=== PATIENT | female | born 2000 | race Asian ===

== ENCOUNTER → 2024-03-25 11:44 | Outpatient (CLI) | payer OTHER, SELFPAY ==
[2024-03-25 13:31] LABS: HCG Quantitative /Beta subunit < 2.39 mIU/mL; Prolactin 9.5 ng/mL (3.0-18.6)
[2024-03-25 13:47] LABS: TSH w/ Reflex to FT4 1.35 uIU/mL (0.47-4.68)
[2024-03-25 15:21] LABS: Follicle Stimulating Hormone 4.41 mIU/mL
[2024-03-31 21:37] LABS: Percent Free Testosterone 2.88 % (0.50-2.80); Testosterone Free 1.25 ng/dL (0.10-0.85); Testosterone Total 43.3 ng/dL (10.0-55.0)
== END ==
PROVIDERS: Referring Provider Obstetrics & Gynecology; Visit Provider Obstetrics & Gynecology
DX: E28.2 Polycystic ovarian syndrome (principal); N91.5 Oligomenorrhea, unspecified
CPT/HCPCS: 36415; 82627; 83001; 83002; 84146; 84402; 84403; 84443; 84702

== ENCOUNTER → 2024-04-29 07:53 | Outpatient (CLI) | payer OTHER, SELFPAY ==
--- NOTE | 2024-04-29 07:54 | DI.US.S_ITS ---
PROCEDURE: US PELVIC COMPLETE INDICATIONS: History of PCOS, oligomenorrhea TECHNIQUE: Real-time scanning was performed of the pelvic organs, with image documentation. Additional endovaginal scanning was necessary due to incomplete visualization of the adnexal and endometrial structures by transabdominal scanning. COMPARISON: None. FINDINGS: Uterus: 8 x 3.5 x 4.7 cm. Retroverted positioning. Endometrium measures 11 mm. Homogeneous echotexture. There are numerous nabothian cysts. Ovaries: Moderately enlarged right ovary measuring 28 cc, with numerous follicles numbering greater than 12. Dominant follicle measuring 2 x 1.8 cm with debris, likely hemorrhagic cyst. Mildly enlarged left ovary measures 14 cc with many follicles number greater than 12. Other: No pathologic free fluid. IMPRESSION: Bilateral enlarged ovaries with numerous follicles, nonspecific findings that can be seen with polycystic ovarian syndrome correlating with laboratory and clinical context. Numerous nabothian cysts. No significant uterine abnormality. . Dictated by: Masoud Adkins M.D. on 04/29/2024 at 14:35 Approved by: Masoud Adkins M.D. on 04/29/2024 at 14:37
== END ==
LOC: US 07:53
PROVIDERS: Referring Provider Obstetrics & Gynecology; Visit Provider Obstetrics & Gynecology
DX: E28.2 Polycystic ovarian syndrome (principal); N88.8 Other specified noninflammatory disorders of cervix uteri
CPT/HCPCS: 76830; 76856

== ENCOUNTER → 2024-07-12 16:03 | Outpatient (CLI) | payer OTHER, SELFPAY | PROVIDERS: Referring Provider Obstetrics & Gynecology; Visit Provider Obstetrics & Gynecology | DX: N97.0 Female infertility associated with anovulation (principal) | CPT/HCPCS: 36415; 84144 ==

== ENCOUNTER → 2024-10-12 15:38 | Outpatient (CLI) | payer OTHER, SELFPAY ==
--- NOTE | 2024-10-12 15:40 | DI.US.S_ITS ---
PROCEDURE: US OB <= 14 WEEKS FETUS INDICATIONS: DATING OUTSIDE/PRIOR DATING DATA: Last menstrual period (LMP): 08/24/2024 LMP-based estimated date of delivery (RANJAN): 05/31/2025. TECHNIQUE: Real-time scanning was performed of the fetus and maternal pelvic organs, with image documentation. Endovaginal scanning was also performed to better visualize the fetus and maternal ovaries. COMPARISON: None. FINDINGS: Embryo: 6.1 cm crown-rump length corresponds with a 7 week 1 day gestation Heart rate: 145 Maternal organs: Ovaries left corpus luteum cyst. IMPRESSION: Single live intrauterine consistent with a 7 week 1 day gestation Approved by: Andrade Clark M.D. on 10/13/2024 at 14:10
== END ==
PROVIDERS: Referring Provider Advanced Practice Midwife; Visit Provider Advanced Practice Midwife
DX: O36.80X0 Pregnancy with inconclusive fetal viability, not applicable or unspecified (principal); N83.12 Corpus luteum cyst of left ovary; Z3A.01 Less than 8 weeks gestation of pregnancy
CPT/HCPCS: 76801; 76830

== ENCOUNTER → 2025-01-11 07:05 | Outpatient (CLI) | payer OTHER, SELFPAY ==
--- NOTE | 2025-01-11 07:05 | DI.US.S_ITS ---
PROCEDURE: US OB >= 14 WEEKS FETUS INDICATIONS: 20 week anatomy scan OUTSIDE/PRIOR DATING DATA: The calculations are made using the RANJAN of 05/30/2025. TECHNIQUE: Real-time scanning was performed of the fetus, with image documentation and biometric measurements. Endovaginal scanning: Not performed COMPARISON: [facility], OB <= 14 WEEKS FETUS, 10/12/2024, 16:02. FINDINGS: General: A single living intrauterine gestation is present. Presentation: Variable. Placenta: Placental position is posterior , without previa. Amniotic fluid index: 12.5 cm, normal range is 5-24 cm. Single deepest vertical pocket is 4.1 cm. heart rate: 143 beats per minute. Maternal cervical canal: 3.8 cm long. Normal lower limit is 2.5 cm. biometrics: Biparietal diameter: 4.9 centimeters, 20 weeks 5 days Head circumference: 17.4 centimeters, 19 weeks 6 days Abdominal circumference: 14.7 centimeters, 20 weeks 0 days Femur length: 3.3 centimeters, 20 weeks 0 days Clinically estimated gestational age: 20 weeks 1 day Composite gestational age from present scan: 20 weeks 1 day Estimated weight and percentile: 332 grams, 43 percent Anatomic survey: Neuro: Ventricles are non-dilated at less than 10 mm. Cisterna magna is normal at 3-11 mm. Cerebellum is normal in size and morphology. Nuchal skin fold: Normal at less than 6 mm between 14-21 weeks gestational age. Face: Nose and lips, facial profile are normal. Spine: No evidence for spina bifida. Heart: 4-chambered heart is present, with normal ventricular outflow tracts. Diaphragm: Diaphragm is intact. Stomach: Left-sided stomach is present. Kidneys: No hydronephrosis. Normal is less than 5 mm in 2nd trimester, less than 7 mm in 3rd trimester. Cord: 3-vessel cord has orthotopic insertion. Bladder: Normal in size. Extremities: All 4 extremities identified. IMPRESSION: 1. Single live intrauterine consistent with 20 weeks and 1 day. 2. Normal anatomic survey. We strive to produce accurate, complete, and clear reports of imaging services. To assist us in improving patient care, this report was composed using standard report templates and voice recognition software. Therefore, it may contain abnormal punctuation, insertions and/or omissions. Occasional wrong-word or sound-alike substitutions may occur. Though we review the report and make efforts to correct it, we do recommend that the report be read carefully in proper context to recognize any text inaccuracies. Dictated by: Sree Farnsworth M.D. on 01/11/2025 at 10:24 Approved by: Sree Farnsworth M.D. on 01/11/2025 at 10:27
== END ==
LOC: US 07:05
PROVIDERS: Referring Provider Advanced Practice Midwife; Visit Provider Advanced Practice Midwife
DX: Z34.92 Encounter for supervision of normal pregnancy, unspecified, second trimester (principal); Z3A.20 20 weeks gestation of pregnancy
CPT/HCPCS: 76811